=== PATIENT | male | born 1940 | race Caucasian/White ===

== ENCOUNTER 2020-08-09 15:42 | Outpatient (REF) | payer MEDICARE, SELFPAY ==
--- NOTE | 2020-08-09 | PFT_ITS ---
INDICATION: Pulmonary nodules. SPIROMETRY: The FEV1 to FVC 76% with an FEV1 of 3.22 L, which is 121% predicted, and an FVC of 4.25 L, which is 113% predicted. No significant response to bronchodilators noted. Maximum voluntary ventilation 102% predicted. LUNG VOLUMES: Total lung capacity 96% predicted with an expiratory volume of 55% predicted. DIFFUSION CAPACITY: DLCO 54% predicted. COMPARISONS: None available. INTERPRETATION: No obstructive nor restrictive ventilatory defects identified. No significant response to bronchodilators noted. Normal maximum voluntary ventilation. Lung volumes are within normal limits. However, the patient does have an isolated moderate diffusion impairment. Need to consider occult interstitial lung conditions and/or pulmonary vascular conditions. Should also correct for hemoglobin. Clinical correlation warranted. MD PATRICIA Sharp/[facility] / [id number]
== END 2020-08-09 15:43 | disposition home or self-care (01) ==
LOC: HO.RESP 15:42
PROVIDERS: Visit Provider Hospitalist
DX: R91.8 Other nonspecific abnormal finding of lung field (principal)
CPT/HCPCS: 94060; 94727; 94729

== ENCOUNTER → 2020-08-10 10:40 | Outpatient (BNVA) | payer MEDICARE, SELFPAY | PROVIDERS: PCP Internal Medicine; Visit Provider Hospitalist | DX: C91.10 Chronic lymphocytic leukemia of B-cell type not having achieved remission (principal); R16.0 Hepatomegaly, not elsewhere classified; R94.2 Abnormal results of pulmonary function studies; R91.8 Other nonspecific abnormal finding of lung field | CPT/HCPCS: 99212 ==

== ENCOUNTER 2020-11-26 10:20 | Outpatient (REF) | payer MEDICARE, SELFPAY ==
--- NOTE | ~2020-11-26 | CT_ITS ---
EXAMINATION: CT CHEST WITHOUT CONTRAST CLINICAL INFORMATION: Pulmonary nodules COMPARISON: None TECHNIQUE: Multidetector volumetric CT imaging of the chest was done. Axial MIP volume rendering provided. Sagittal and coronal reformatted images were obtained. This CT examination was performed using dose optimization techniques as appropriate, variously including the following: *Automated exposure control *Adjustment of mA and/or kV according to patient size (this includes techniques or standardized protocols for targeted exams where dose is matched to indication/reason for exam; i.e. extremities or head) *Use of iterative reconstruction technique DLP: 145 mGy-cm FINDINGS: VISUAL MERCHANDISE MANAGER: Degenerative changes of the spine. Symmetrically expanded lungs. LUNGS: Motion artifact limits evaluation of the upper lobes. There are areas of triangular area fissural thickening along the right major fissure, for example image 225/4 9. There is a 2 to 3 mm right lower lobe nodule in image 253. Ovoid 5 x 3 mm nodule in the right lower lobe in image 234 may be related to the fissure as well. MEDIASTINUM: Normal size mediastinal lymph nodes. No hilar or mediastinal lymphadenopathy. Dense left anterior descending and diagonal branch coronary artery calcification. No pericardial effusion. Normal heart size. PLEURA: There is no pleural effusion. No pleural mass or thickening. AXILLA: No lymphadenopathy. UPPER ABDOMEN: Splenomegaly, measuring 15 cm anterior to posterior. OSSEOUS STRUCTURES: Multilevel degenerative changes of the spine. No acute osseous abnormality. CT/CT chest wo con IMPRESSION: There are several small nodular abnormalities in the right lung. Most of these are associated with the right major fissure and likely represent intrafissural lymph nodes but there is at least one 2-3 mm nodule which appears to be intraparenchymal. According to the UPDATED 2017 Fleischner Society recommendations, the advised follow-up imaging for solid nodules < 6 mm is: LOW RISK PATIENT: No routine follow-up. HIGH RISK PATIENT: Optional CT at 12 months. Nonspecific splenomegaly.
== END 2020-11-26 10:21 | disposition home or self-care (01) ==
LOC: HO.CT 10:20
PROVIDERS: Visit Provider Hospitalist
DX: R91.8 Other nonspecific abnormal finding of lung field (principal); R16.0 Hepatomegaly, not elsewhere classified; C91.10 Chronic lymphocytic leukemia of B-cell type not having achieved remission
CPT/HCPCS: 71250

== ENCOUNTER → 2020-12-06 09:55 | Outpatient (BNVA) | payer MEDICARE, SELFPAY | PROVIDERS: PCP Internal Medicine; Visit Provider Hospitalist | DX: C91.10 Chronic lymphocytic leukemia of B-cell type not having achieved remission (principal); R91.8 Other nonspecific abnormal finding of lung field; R16.0 Hepatomegaly, not elsewhere classified; R94.2 Abnormal results of pulmonary function studies | CPT/HCPCS: 99212 ==

== ENCOUNTER → 2021-12-07 10:32 | Outpatient (BNVA) | payer MEDICARE, SELFPAY | PROVIDERS: PCP Internal Medicine; Visit Provider Hospitalist | DX: C91.10 Chronic lymphocytic leukemia of B-cell type not having achieved remission (principal); R91.8 Other nonspecific abnormal finding of lung field; R94.2 Abnormal results of pulmonary function studies; R16.0 Hepatomegaly, not elsewhere classified | CPT/HCPCS: 99212 ==

== ENCOUNTER 2023-08-28 09:22 | Outpatient (AMB) | payer MEDICARE, SELFPAY ==
--- NOTE | 2023-08-28 09:30 | HO.NEPHOV_ITS ---
Vital Signs 08/28/23 09:31 Height 5 ft 8 in Weight 153 lb 8 oz BMI 23.3 BP 104/50 L Blood Pressure Location Lt brachial Position Sitting Pulse 55 Pulse Source Pulse Oximeter Pulse Oximetry (%) 96 Oxygen Delivery Method Room Air Intake Visit Reasons: Please confirm/ Conf Director Of Preclinical Research Required: No Accompanied by: Self / Same As Patient Allergies No Known Allergies Allergy (Verified 08/28/23 09:33) HPI Comments Details: I had the privilege of seeing Ilia in follow-up of his chronic kidney disease and proteinuria. He has longstanding hypertension. He has not a diabetic. He does not take nonsteroidal anti-inflammatories regularly. He has history of prostate issues in the past. He is known to have coronary artery disease and had undergone angioplasty. He denies CVA, KAMINI, PVD or CHF. There is no history of any paraproteinemia. 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 He received Rituximab in 2015 and in Mar 2023. He had steroid treatment in late Mar / Apr for thrombocytopenia. He did not have any new systemic complaints at the time of this office visit. [facility] Medical History (Updated 08/28/23 @ 09:34 by Ravindra Arrieta MD) Hypothyroidism Hyperlipidemia Hypertension Chronic kidney disease, stage 3a Allergic rhinitis CLL (chronic lymphocytic leukemia) Liver mass Abnormal PFTs (pulmonary function tests) Pulmonary nodules Surgical History (Updated 08/28/23 @ 09:35 by Beverly Flores MA) History of heart artery stent History of cataract surgery Family History (Updated 08/28/23 @ 09:36 by Beverly Flores MA) Daughter Cancer Social History (Updated 08/28/23 @ 09:36 by Beverly Flores MA) Alcohol intake: current Comment: Occasionally Patient Tobacco Use Status: Never used Tobacco Use of substances other than those prescribed or required for medical reasons: No Physical Exam Vital Signs: Last Vital Signs Pulse 55 08/28/23 09:31 BP 104/50 L 08/28/23 09:31 Pulse Ox 96 08/28/23 09:31 Oxygen Delivery Method Room Air 08/28/23 09:31 BMI result Body Mass Index 23.3 Const General: comfortable and no acute distress Orientation/consciousness: patient oriented x3 HEENT Head: Yes normocephalic Mouth: Normal oral and palatal mucosa present Eyes EOM: EOMs intact bilaterally Neck Neck: Yes supple Resp Auscultation: clear to auscultation bilaterally Cardio Jugular venous distension: no JVD Rate: regular rate GI Palpation (GI): Soft to palpation Auscultation: normal bowel sounds General: Yes no CVA tenderness Back/Spine/Pelvis Back: no CVA tenderness Skin General skin exam: no rashes or lesions noted Neuro General: patient oriented x3 and moves all extremities Extrem General: Yes no pedal edema Results Reviewed Nephrology Results: No Data to Display Assessment & Plan Assessment & Plan (1) CKD stage 3b, GFR 30-44 ml/min: Code(s): N18.32 - Chronic kidney disease, stage 3b Category: Medical (2) Hypertension: Code(s): I10 - Essential (primary) hypertension Category: Medical Qualifiers: Hypertension type: primary hypertension Qualified Code(s): I10 - Essential (primary) hypertension Plan Ilia has stage III CKD likely from vascular disease. His serum creatinine had been stable. He is on DEMETRIO-inhibitor. 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 He had received Rituximab. If his creatinine rises he will need a renal biopsy. He should maintain good hydration and avoid nonsteroidal anti-inflammatories. I did not make any medication changes today. Follow-up blood work ordered. Answered all questions. Orders: Orders Creatinine Today I10 - Essential (primary) hypertension, N18.32 - Chronic kidney disease, stage 3b Blood Urea Nitrogen Today I10 - Essential (primary) hypertension, N18.32 - Chronic kidney disease, stage 3b Electrolytes Today I10 - Essential (primary) hypertension, N18.32 - Chronic kidney disease, stage 3b Protein Creatinine Ratio, Ur Today I10 - Essential (primary) hypertension, N18.32 - Chronic kidney disease, stage 3b Calcium Today I10 - Essential (primary) hypertension, N18.32 - Chronic kidney disease, stage 3b Uric Acid Today I10 - Essential (primary) hypertension, N18.32 - Chronic kidney disease, stage 3b Creatinine 6 Months I10 - Essential (primary) hypertension, N18.32 - Chronic kidney disease, stage 3b Blood Urea Nitrogen 6 Months I10 - Essential (primary) hypertension, N18.32 - Chronic kidney disease, stage 3b Electrolytes 6 Months I10 - Essential (primary) hypertension, N18.32 - Chronic kidney disease, stage 3b Coding Level of Care Code Est Pt Level 4 (41161) Diagnoses CKD stage 3b, GFR 30-44 ml/min N18.32 Primary hypertension I10 Hypertension type: primary hypertension
[2023-08-28 09:31] VITALS: BP 104/50; PULSE 55; O2SAT 96; BMI 23.3
== END 2023-08-28 10:18 | disposition home or self-care (01) ==
PROVIDERS: PCP Internal Medicine; Visit Provider Internal Medicine Nephrology
DX: N18.32 Chronic kidney disease, stage 3b (principal); I10 Essential (primary) hypertension
CPT/HCPCS: 99214

== ENCOUNTER → 2023-08-28 09:22 | Outpatient (BNVA) | payer MEDICARE, SELFPAY | PROVIDERS: PCP Internal Medicine; Visit Provider Internal Medicine Nephrology ==

== ENCOUNTER 2023-08-28 10:03 | Outpatient (REF) | payer MEDICARE, SELFPAY ==
[2023-08-28 18:47] LABS: Anion Gap 11 (12-20); Blood Urea Nitrogen 27 mg/dL (9-16); Calcium 9.3 mg/dL (8.4-10.2); Carbon Dioxide 25 mmol/L (22-29); Chloride 109 mmol/L (96-108); Estimated Glomerular Filt Rate 46; Potassium 4.2 mmol/L (3.3-5.1); Sodium 141 mmol/L (135-145); Uric Acid 6.2 mg/dL (3.4-7.0)
[2023-08-28 18:56] LABS: Creatinine Urine 127.07 mg/dL; Protein/Creatinine Ratio, Ur 0.15 (<0.2); Total Protein Urine Random 19 mg/dL (<12)
== END 2023-08-28 10:04 | disposition home or self-care (01) ==
LOC: HO.HKASLDS 10:03
PROVIDERS: Visit Provider Internal Medicine Nephrology
DX: I10 Essential (primary) hypertension (principal); N18.32 Chronic kidney disease, stage 3b
CPT/HCPCS: 36415; 80051; 82310; 82565; 82570; 84156; 84520; 84550; 99212

== ENCOUNTER 2024-02-28 09:17 | Outpatient (AMB) | payer MEDICARE, SELFPAY ==
[2024-02-28 09:37] VITALS: BP 124/52; PULSE 55; O2SAT 97; BMI 23.9
--- NOTE | 2024-02-28 09:37 | HO.NEPHOV ---
Vital Signs 02/28/24 09:37 Height 5 ft 8 in Weight 157 lb 6 oz BMI 23.9 BP 124/52 L Blood Pressure Location Lt brachial Position Sitting Pulse 55 Pulse Source Pulse Oximeter Pulse Oximetry (%) 97 Oxygen Delivery Method Room Air Intake Visit Reasons: follow up- Conf Supervisor Title Required: No Accompanied by: Self / Same As Patient Allergies No Known Allergies Allergy (Verified 02/28/24 09:37) HPI Comments Details: Ilia was seen in follow-up of his chronic kidney disease and proteinuria. He has longstanding hypertension. He has not a diabetic. He does not take nonsteroidal anti-inflammatories regularly. He has history of prostate issues in the past. He is known to have coronary artery disease and had undergone angioplasty. He denies CVA, KAMINI, PVD or CHF. There is no history of any paraproteinemia. 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 He received Rituximab in 2015 and in Mar 2023. He had steroid treatment in late Mar / Apr for thrombocytopenia. He did not have any new systemic complaints at the time of this office visit. [facility] Medical History (Updated 08/28/23 @ 09:34 by Ravindra Arrieta MD) Hypothyroidism Hyperlipidemia Hypertension Chronic kidney disease, stage 3a Allergic rhinitis CLL (chronic lymphocytic leukemia) Liver mass Abnormal PFTs (pulmonary function tests) Pulmonary nodules Surgical History History of heart artery stent History of cataract surgery Family History Daughter Cancer Social History Alcohol intake: current Comment: Occasionally Patient Tobacco Use Status: Never used Tobacco Review of Systems Const All systems reviewed & are unremarkable except as noted in HPI and below Physical Exam Vital Signs: Last Vital Signs Pulse 55 02/28/24 09:37 BP 124/52 L 02/28/24 09:37 Pulse Ox 97 02/28/24 09:37 Oxygen Delivery Method Room Air 02/28/24 09:37 BMI result Body Mass Index 23.9 Const General: comfortable and no acute distress Orientation/consciousness: patient oriented x3 HEENT Head: Yes normocephalic Mouth: Normal oral and palatal mucosa present Eyes EOM: EOMs intact bilaterally Neck Neck: Yes supple Resp Auscultation: clear to auscultation bilaterally Cardio Jugular venous distension: no JVD Rate: regular rate GI Palpation (GI): Soft to palpation Auscultation: normal bowel sounds General: Yes no CVA tenderness Back/Spine/Pelvis Back: no CVA tenderness Skin General skin exam: no rashes or lesions noted Neuro General: patient oriented x3 and moves all extremities Extrem General: Yes no pedal edema Assessment & Plan Assessment & Plan (1) CKD stage 3b, GFR 30-44 ml/min: Code(s): N18.32 - Chronic kidney disease, stage 3b Category: Medical (2) Hypertension: Code(s): I10 - Essential (primary) hypertension Category: Medical Qualifiers: Hypertension type: primary hypertension Qualified Code(s): I10 - Essential (primary) hypertension Plan Ilia has stage III CKD likely from vascular disease. His serum creatinine had been stable. He is on DEMETRIO-inhibitor. 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 He had received Rituximab. If his creatinine rises he will need a renal biopsy. He should maintain good hydration and avoid nonsteroidal anti-inflammatories. I did not make any medication changes today. Follow-up blood work ordered. Answered all questions. Coding Level of Care Code Est Pt Level 4 (75121) Diagnoses CKD stage 3b, GFR 30-44 ml/min N18.32 Primary hypertension I10 Hypertension type: primary hypertension
== END 2024-02-28 09:54 | disposition home or self-care (01) ==
PROVIDERS: PCP Internal Medicine; Visit Provider Internal Medicine Nephrology
DX: N18.32 Chronic kidney disease, stage 3b (principal); I10 Essential (primary) hypertension
CPT/HCPCS: 99214

== ENCOUNTER → 2024-02-28 09:17 | Outpatient (BNVA) | payer MEDICARE, SELFPAY | PROVIDERS: PCP Internal Medicine; Visit Provider Internal Medicine Nephrology | DX: I12.9 Hypertensive chronic kidney disease with stage 1 through stage 4 chronic kidney disease, or unspecified chronic kidney disease (principal); N18.32 Chronic kidney disease, stage 3b | CPT/HCPCS: 99212 ==

== ENCOUNTER 2024-11-20 14:30 | Outpatient (AMB) | payer MEDICARE, SELFPAY ==
--- OUTSIDE RECORDS SUMMARY | 2024-01-02 10:00 | XMS_ITS | Encounter Summary ---
Author Organization [facility] Address [address] [place] [address] Care Team Providers Care Water Quality Analyst Name Role Phone Alfred Celaya MD Primary Care Provider + [phone] Encounter Details Date Type Department Care Team (Late st Contact Info) Description 01/02/2024 10:00 AM EDT Hospital Encounter TH HISTORIC ENCOUNTERS [facility] CONVERSION ONLY Xavier-Cristina Bautista MD [address] [place] [id number] Social History Tobacco Use Types Packs/Day Years Used Date Smoking Tobacco: Never Smokeless Tobacco: Never Alcohol Use Standard Drinks/Week Comments Not Currently 0 (1 standard drink = 0.6 oz pur e alcohol) Sex and Gender Information Value Date Recorded Sex Assigned at Not on file Legal Sex Male 11:57 PM EST Gender Identity Not on file Sexual Orientation Not on file documented as of this encounter Plan of Treatment Upcoming Encounters Date Type Department Care Team (Late st Contact Info) Description 12/17/2024 1:00 PM EDT Office Visit [facility] [address] [place] [address] Rolando Roque MD [address] [place] [address] [address] [place] [phone] 01/07/2025 10:00 AM EDT Office Visit [facility] Hematology Oncology [address] [place] [address] Xavier-Cristina Bautista MD [address] [place] [phone] documented as of this encounter Visit Diagnoses Not on filedocumented in this encounter Care Teams Water Quality Analyst Relationship Specialty Start Date End Date Alfred Celaya MD [address] [place] [address] PCP - General Internal Medicine 08/06/14 documented as of this encounter
--- NOTE | 2024-11-20 14:39 | HO.NEPHOV_ITS ---
Vital Signs 11/20/24 14:50 Height 5 ft 8 in Weight 149 lb 6 oz BMI 22.7 BP 104/50 L Blood Pressure Location Lt brachial Position Sitting Pulse 65 Pulse Source Pulse Oximeter Pulse Oximetry (%) 95 Oxygen Delivery Method Room Air Intake Visit Reasons: 8 Months-Conf Rail Track Layer Required: No Accompanied by: Self / Same As Patient Allergies No Known Allergies Allergy (Verified 11/20/24 14:50) HPI Comments Details: Ilia was seen in follow-up of his chronic kidney disease and proteinuria. He has longstanding hypertension. He has not a diabetic. He does not take nonsteroidal anti-inflammatories regularly. He has history of prostate issues in the past. He is known to have coronary artery disease and had undergone angioplasty. He denies CVA, KAMINI, PVD or CHF. There is no history of any paraproteinemia. 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 He received Ri tuximab in 2015 and in Feb/ Mar 2023. He has H/O steroid treatment in late Mar / Apr for thrombocytopenia. He did not have any new systemic complaints at the time of this office visit [facility] Medical History (Updated 08/28/23 @ 09:34 by Ravindra Arrieta MD) Hypothyroidism Hyperlipidemia Hypertension Chronic kidney disease, stage 3a Allergic rhinitis CLL (chronic lymphocytic leukemia) Liver mass Abnormal PFTs (pulmonary function tests) Pulmonary nodules Surgical History History of heart artery stent History of cataract surgery Family History Daughter Cancer Social History Alcohol intake: current Comment: Occasionally Patient Tobacco Use Status: Never used Tobacco Review of Systems Const All systems reviewed & are unremarkable except as noted in HPI and below Physical Exam Const General: comfortable and no acute distress Orientation/consciousness: patient oriented x3 HEENT Head: Yes normocephalic Mouth: Normal oral and palatal mucosa present Eyes EOM: EOMs intact bilaterally Neck Neck: Yes supple Resp Auscultation: clear to auscultation bilaterally Cardio Jugular venous distension: no JVD Rate: regular rate GI Palpation (GI): Soft to palpation Auscultation: normal bowel sounds General: Yes no CVA tenderness Back/Spine/Pelvis Back: no CVA tenderness Skin General skin exam: no rashes or lesions noted Neuro General: patient oriented x3 and moves all extremities Extrem General: Yes no pedal edema Assessment & Plan Assessment & Plan (1) Hypertension: Code(s): I10 - Essential (primary) hypertension Category: Medical Qualifiers: Hypertension type: primary hypertension Qualified Code(s): I10 - Essential (primary) hypertension (2) CKD stage 3b, GFR 30-44 ml/min: Code(s): N18.32 - Chronic kidney disease, stage 3b Category: Medical Plan Ilia has stage III CKD likely from vascular disease. His serum creatinine had been stable. He is on DEMETRIO-inhibitor. 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 He had received Rituximab. If his creatinine rises he will need a renal biopsy. He should maintain good hydration and avoid nonsteroidal anti-inflammatories. I did not make any medication changes today. Follow-up blood work ordered. Answered all questions. Orders: Orders Creatinine 7 Months I10 - Essential (primary) hypertension, N18.32 - Chronic kidney disease, stage 3b Blood Urea Nitrogen 7 Months I10 - Essential (primary) hypertension, N18.32 - Chronic kidney disease, stage 3b Electrolytes 7 Months I10 - Essential (primary) hypertension, N18.32 - Chronic kidney disease, stage 3b Calcium 7 Months I10 - Essential (primary) hypertension, N18.32 - Chronic kidney disease, stage 3b Coding Level of Care Code Est Pt Level 4 (51895) Diagnoses Primary hypertension I10 Hypertension type: primary hypertension CKD stage 3b, GFR 30-44 ml/min N18.32
[2024-11-20 14:50] VITALS: BP 104/50; PULSE 65; O2SAT 95; BMI 22.7
--- OUTSIDE RECORDS SUMMARY | 2024-11-20 15:48 | XMS_ITS | Clinical Summary ---
Author [facility] [place] [address] Phone Care Team Providers Care Negative Turner Name Role Phone Alfred Celaya MD Primary Care Provider [phone] Allergies No known active allergies Medications aspirin (ASPIR-81 ORAL) Take 1 Tablet by mouth daily. Active coenzyme Q-10 100 mg capsule Take 1 Capsule by mouth daily. Active finasteride (PROSCAR) 5 mg tablet Take 1 Tablet by mouth daily. Active levothyroxine (SYNTHROID, LEVOTHROID) 75 mcg tablet Take 1 Tablet by mouth daily. Active multivit-min/iron /folic acid/K (ADULTS MULTIVITAMIN ORAL) Multiple Vitamins-Mine rals (MULTIVITAMIN ADULT) Tab Take 1 Tablet by mouth daily. Active omega-3 acid ethyl esters (LOVAZA) 1 gram capsule Take 1 Capsule by mouth daily. Active oxyBUTYnin (DITROPAN) 5 mg tablet Take 5 mg by mouth 2 times daily. Active simvastatin (ZOCOR) 40 mg tablet Take 40 mg by mouth at bedtime. Active terazosin (HYTRIN) 5 mg capsule Take 5 mg by mouth at bedtime. Active lisinopriL (PRINIVIL,ZESTRIL ) 2.5 mg tablet Take 1 tablet (2.5 mg total) by mouth 1 (one) time each day. Active atenoloL (TENORMIN) 25 mg tablet TAKE ONE-HALF (1/2) (12.5 MG) TABLET DAILY 45 tablet 3 5 Active Active Problems Problem Noted Date Diagnosed Date Allergic rhinitis 09/03/2017 Coronary artery disease 09/03/2017 Overview (05/27/2024): Stented 06/06/1996, 09/15/14 Last Assessment & Plan: Patient with a history coronary disease status post previous angioplasty. Patient now exhibits some evidence for possible ischemia. The chest pain symptoms that he complained about before I have resolved and he is able to ambulate walking 3 miles every other day with his son without pain or discomfort and working in the yard without discomfort. We discussed the possibility of adding long-term nitrate therapy to his medical management in an effort to try to give him better ischemic protection. He does not want to change his meds. At this point he is completely asymptomatic his physical activity is a moderate level without any symptoms of angina. I told him to report any chest pain or discomfort that might occur in which case then we will change his medical management. Assessment & Plan (05/27/2024 10:35 AM EDT): Patient with a previous history of coronary disease with angioplasty of both the left anterior descending and circumflex systems.With class I anginal symptoms still present. Discussed that the class I symptoms with him I discussed with him the indication for us to reevaluate which would be exertional discomfort that is progressive. He has been asked to call us if he develops any that when he starts his walking program again this summer. Otherwise we will see him back in 6 months patient states that his lipids been followed by primary care but I cannot find a recent lipid profile on him I cited the patient that even though there may be some mild ischemia on stress testing as long as it is being controlled with medical management and is not having day-to-day symptoms we would proceed to angioplasty if there is any deterioration in that level of exertional discomfort. Orders: ECG 12 lead Hypertension 09/03/2017 Overview (02/25/2024): Last Assessment & Plan: Blood pressures under good medical management at this time Osteoporosis 09/03/2017 CLL (chronic lymphocytic adarsh kemia) ([facility] V24, [facility] V28) 08/03/2017 Overview (02/25/2024): Last Assessment & Plan: Patient with chronic CLL. White cell count is elevated mild anemia. No change in therapy at this time followed by hematology. Hyperlipidemia 07/25/2017 Overview (02/25/2024): Last Assessment & Plan: Lipids recently checked by his primary care team and they are all within normal limits Pulmonary nodule 11/28/2016 Encounters Date Type Department Care Team Description 11/14/2024 Telephone [facility] [address] [address] Meggan Castrejon RN from Last 3 Months Surgical History Surgery Date Site/Laterality Comments CARDIAC CATHETERIZATION PROCEDURE: HISTORICAL CARDIAC CATH; COMMENT: stented , 08/31 CATARACT EXTRACTION Bilateral PROCEDURE: HISTORICAL CATARACT REMOVAL Medical History Medical History Date Comments Hyperlipidemia 07/25/2017 DX:Hyperlipidemi a Allergic rhinitis 09/03/2017 DX:Allergic rh initis CLL (chronic lymphocytic adarsh kemia) ([facility] V24, [facility] V28) 08/03/2017 DX:CLL (chronic lymphocytic leukemia) ([facility]) Coronary artery disease 09/03/2017 DX:Coron isidra artery disease; COMMENT: Stented 06/06/1996, 09/15/14 Hypertension 09/03/2017 DX:Hypertension Osteoporosis 09/03/2017 DX:Osteoporosis Pulmonary nodule 11/28/2016 DX:Pulmonary no dule Family History Medical History Relation Name Comments Other: heart disease Father stroke Heart failure Mother Relation Name Status Comments Father Mother Social History Tobacco Use Types Packs/Day Years Used Date Smoking Tobacco: Never Smokeless Tobacco: Never Tobacco Cessation:Counseling Given: Not Answered Alcohol Use Standard Drinks/Week Comments Not Currently 0 (1 standard drink = 0.6 oz pur e alcohol) Sex and Gender Information Value Date Recorded Sex Assigned at Not on file Legal Sex Male 11:57 PM EST Gender Identity Not on file Sexual Orientation Not on file Obstetrics History Last Filed Vital Signs Vital Sign Reading Time Taken Comments Blood Pressure 112/42 07/17/2024 10:43 AM EDT Pulse 55 07/17/2024 10:43 AM EDT Temperature 36.6 C (97.8 F) 07/17/2024 10:43 AM EDT Respiratory Rate - - Oxygen Saturation 100% 07/17/2024 10:43 AM EDT Inhaled Oxygen Concentration - - Weight 70.3 kg (155 lb) 07/17/2024 10:43 AM EDT Height 172.7 cm (5' 8 ) 07/17/2024 10:43 AM EDT Body Mass Index 23.57 07/17/2024 10:43 AM EDT Plan of Treatment Upcoming Encounters Date Type Department Care Team (Late st Contact Info) Description 12/17/2024 1:00 PM EDT Office Visit [facility] [address] [place] [address] Dr Colon [address] [place] [address] Rolando Roque MD [address] [place] [address] Dr Chavez [address] [place] [address] 01/07/2025 10:00 AM EDT Office Visit [facility] Hematology Oncology [address] [place] [address] Xavier-Cristina Bautista MD [address] [place] [address] Health Maintenance Due Date Last Done Comments DTaP,Tdap,and Td Vaccines (1 - Tdap) 1959 Zoster Vaccines (1 of 2) 1959 Pneumococcal Vaccine: 50+ Years (2 of 2 - PPSV23) 05/14/2008 03/19/2008 RSV Immunization Adult Patients (1 - 1-dose 75+ series) 2016 Cholesterol Screening (Lipid Panel) 02/24/2022 Falls Risk Assessment 02/24/2022 Medicare Annual Wellness Visit 02/24/2022 Social Influencers of Health Screening 02/24/2022 Depression Screening 03/19/2024 COVID-19 Vaccine ( season) 2024 06/27/2021, 01/19/2021, 06/05/2020, Additional history exists Influenza Vaccine (#1) 2024 3, 01/05/2022, 12/29/2020, Additional history exists Hypertension/CHF/CAD Annual BMP Blood Test 01/31/2025 02/01/2024 HIB Vaccines Aged Out No longer eligi ble based on patient's age to complete this topic HPV Vaccines Aged Out No longer eligi ble based on patient's age to complete this topic Hepatitis A Vaccines Aged Out No long er eligible based on patient's age to complete this topic Hepatitis B Vaccines Aged Out No long er eligible based on patient's age to complete this topic IPV Vaccines Aged Out No longer eligi ble based on patient's age to complete this topic MMR Vaccines Aged Out No longer eligi ble based on patient's age to complete this topic Meningococcal ACWY Vaccine Aged Out N o longer eligible based on patient's age to complete this topic Meningococcal B Vaccine Aged Out No l onger eligible based on patient's age to complete this topic RSV Immunization Patients Under 20 months Aged Out No longer eligible based on patient's age to complete this topic Varicella Vaccines Aged Out No longer eligible based on patient's age to complete this topic Procedures Procedure Name Priority Date/Time Associated Diagnosis Comments COMPREHENSIVE METABOLIC PANEL Routine 02/01/2024 10:26 AM EST Chronic lymphoid leukemia, without mention of having achieved remission(204.10) (CMS/HCC V24, [facility] V28) Anemia, unspecified from Last 3 Months or Most Recently Relevant to Health Maintenance Results * (ABNORMAL) Comprehensive metabolic panel (02/01/2024 10:26 AM EST) Sodium 140 133 - 145 mmol/L LAB CHEMISTRY METHOD 02/01/2024 12:54 PM [facility] Potassium 4.2 3.5 - 5.5 mmol/L LAB CHEMISTRY METHOD 02/01/2024 12:54 PM [facility] Chloride 109 96 - 110 mmol/L LAB CHEMISTRY METHOD 02/01/2024 12:54 PM [facility] CO2 26 21 - 32 mmol/L LAB CHEMISTRY METHOD 02/01/2024 12:54 PM [facility] Anion Gap 5 3 - 11 LAB CHEMISTRY METHOD 02/01/2024 12:54 PM [facility] Glucose 157(H) 70 - 100 mg/dL LAB CHEMISTRY METHOD 02/01/2024 12:54 PM [facility] BUN 27(H) 5 - 25 mg/dL LAB CHEMISTRY METHOD 02/01/2024 12:54 PM [facility] Creatinine 1.72(H) 0.70 - 1.30 mg/dL LAB CHEMISTRY METHOD 02/01/2024 12:54 PM [facility] eGFR 39(L) >=60 mL/min/1. 73m2 LAB CHEMISTRY METHOD 02/01/2024 12:54 PM [facility] Comment:Calculation based on the Chronic Kidney Disease Epidemiology Collaboration (CKD-EPI) equation refit without adjustment for race. BUN/Creatinine Ratio 15.7 LAB CHEMISTRY METHOD 02/01/2024 12:54 PM [facility] Calcium 8.8 8.5 - 10.5 mg/dL LAB CHEMISTRY METHOD 02/01/2024 12:54 PM [facility] AST (SGOT) 17 10 - 42 unit/L LAB CHEMISTRY METHOD 02/01/2024 12:54 PM [facility] ALT (SGPT) 22 10 - 60 unit/L LAB CHEMISTRY METHOD 02/01/2024 12:54 PM [facility] Alkaline Phosphatase 74 42 - 121 unit/L LAB CHEMISTRY METHOD 02/01/2024 12:54 PM [facility] Total Protein 5.9(L) 6.0 - 8.0 g/dL LAB CHEMISTRY METHOD 02/01/2024 12:54 PM [facility] Albumin 4.0 3.2 - 5.0 g/dL LAB CHEMISTRY METHOD 02/01/2024 12:54 PM [facility] Total Bilirubin 0.6 0.0 - 1.4 mg/dL LAB CHEMISTRY METHOD 02/01/2024 12:54 PM [facility] Blood Venous blood specimen / Unknown Venipuncture / Unknown 02/01/2024 10:26 AM EST 02/01/2024 12:21 PM EST us Cristnia Da Silva MD LAB BLOOD ORDERABLE S Final Result [facility] ([facility]) [facility] [address] [place] [address], from Last 3 Months or Most Recently Relevant to Health Maintenance Insurance MEDICARE [facility] Care Teams Negative Turner Relationship Specialty Start Date End Date Alfred Celaya MD [address] [place] [id number] PCP - General Internal Medicine 08/06/14
--- OUTSIDE RECORDS SUMMARY | 2024-11-20 15:48 | XMS_ITS | Encounter Summary ---
Author Organization [facility] Address [address] [place] [address] Care Team Providers Care Billing Coordinator Name Role Phone Alfred Celaya MD Primary Care Provider + [phone] Encounter Details Date Type Department Care Team (Late st Contact Info) Description 11/14/2024 Telephone [facility] [address] [phone] Meggan Castrejon RN Social History Tobacco Use Types Packs/Day Years [...] on file documented as of this encounter Progress Notes * Cristina Da Silva MD - 11/14/2024 11:44 AM EDT [place] CLL No orders * Lisa Andres MA - 11/14/2024 11:40 AM EDT Copy of lab results given to and scanned into patients chart. * Meggan Castrejon RN - 11/14/2024 11:11 AM EDT Diandra from [facility] Calling to report critical test result on patient. Patient's WBC 89.3. Also reported but not critical is platelet level of 54k. documented in this encounter Plan of Treatment Upcoming Encounters Date Type Department Care Team (Late st Contact Info) Description 12/17/2024 1:00 PM EDT Office Visit [facility] [address] [place] [address] [place] [phone] Rolando Roque MD [address] [place] [address] Dr Chavez [address] [place] [phone] 01/07/2025 10:00 AM EDT Office Visit [facility] Hematology Oncology [address] [place] [phone] Cristina Da Silva MD [address] [place] [phone] documented as of this encounter Visit Diagnoses Not on filedocumented in this encounter Care Teams Billing Coordinator Relationship Specialty Start Date End Date Alfred Celaya MD [address] [place] [id number] PCP - General Internal Medicine 08/06/14 documented as of this encounter
--- OUTSIDE RECORDS SUMMARY | 2024-11-20 15:48 | XMS_ITS | Clinical Summary ---
Author Organization [facility] Address [address] [address] Phone Care Team Providers Care Tax Compliance Officer Name Role Phone Alfred Celaya MD Primary Care Provider Allergies No known active allergies Medications oxybutynin (DITROPAN) 5 MG tablet Take 1 tablet by mouth 1 (one) time each day 07/26/2020 Active atenolol (TENORMIN) 25 MG tablet Take 12.5 mg by mouth 1 (one) time each day Active simvastatin (ZOCOR) 40 MG tablet Take 40 mg by mouth every night Active terazosin (HYTRIN) 5 MG capsule Take 5 mg by mouth every night Active aspirin (ST AGATA) 81 MG EC tablet Take 81 mg by mouth 1 (one) time each day Active levothyroxine (SYNTHROID, LEVOTHROID) 75 MCG tablet Take 75 mcg by mouth 1 (one) time each day Active Multiple Vitamin (multivitamin) tablet Take 1 tablet by mouth 1 (one) time each day Active [place]-3 Fatty Acids (Fish Oil) 1000 MG capsule delayed-release Take 1 capsule by mouth 1 (one) time each day Active Coenzyme Q10 (Co Q 10) 100 MG capsule Take 1 capsule by mouth 1 (one) time each day Active isosorbide dinitrate (ISORDIL) 30 MG tablet Take 30 mg by mouth 1 (one) time each day Active lisinopril 2.5 MG tablet Take 1 tablet (2.5 mg total) by mouth 1 (one) time each day 90 tablet 3 05/09/2022 Active Active Problems Problem Noted Date Diagnosed Date Stage 3a chronic kidney disease 08/03/2022 Chronic kidney disease 08/23/2020 Hypertension 08/23/2020 Acute cystitis without hematuria 12/17/2019 Anemia in other chronic diseases classified else where 12/17/2019 Coronary atherosclerosis 09/03/2017 Overview (08/30/2021): Stented 06/06/1996, 09/15/14 Resolved Problems Problem Noted Date Diagnosed Date Resolved Date Disorder of eye region 09/27/202008/30 Splenomegaly 09/29/2019 08/30/2021 Thrombocytopenia 09/29/2019 08/30/2021 Allergic rhinitis 09/03/2017 08/30/2021 Osteoporosis 09/03/2017 08/30/2021 Hyperlipidemia 07/25/2017 08/30/2021 Nodule of lung 11/28/2016 08/30/2021 Chronic lymphoid leukemia, disease 10/02/2016 08/30/2021 Family History Medical History Relation Comments Cancer Child Relation Status Comments Child Father Mother Social History Tobacco Use Types Packs/Day Years Used Date Smoking Tobacco: Never Smokeless Tobacco: Never Tobacco Cessation:Counseling Given: Not Answered Alcohol Use Standard Drinks/Week Comments Yes 0 (1 standard drink = 0.6 oz pur e alcohol) Sex and Gender Information Value Date Recorded Sex Assigned at Not on file Legal Sex Male 3:31 PM EDT Gender Identity Not on file Sexual Orientation Not on file Last Filed Vital Signs Vital Sign Reading Time Taken Comments Blood Pressure 116/50 08/03/2022 3:53 PM EDT Pulse 66 08/03/2022 3:53 PM EDT Temperature - - Respiratory Rate - - Oxygen Saturation 99% 09/05/2021 1:00 PM EDT Inhaled Oxygen Concentration - - Weight 68.3 kg (150 lb 9.6 oz) 08/03/2022 3:53 P M EDT Height - - Body Mass Index - - Plan of Treatment Health Maintenance Due Date Last Done Comments Pneumococcal Vaccine: 50+ Years (2 of 2 - PPSV23, PCV20, or PCV21) 05/14/2008 03/19/2008 Influenza Vaccine (#1) 2024 9, 01/08/2018, 01/04/2017 Hepatitis B Vaccine Aged Out No longe r eligible based on patient's age to complete this topic Insurance Medicare [facility] Medicare [facility] Care Teams Tax Compliance Officer Relationship Specialty Start Date End Date Alfred Celaya MD [address] [facility] [place] [place] [address] PCP - General Internal Medicine 09/05/21
--- OUTSIDE RECORDS SUMMARY | 2024-11-20 15:48 | XMS_ITS | Clinical Summary ---
Author Organization [facility] Address [address] [place] [address] Care Team Providers Care Artist Suspect Name Role Phone Alfred Celaya MD Primary Care Provider + [phone] Allergies No known active allergies Medications Medication Sig Dispensed Refills Start Date End Date Status simvastatin (ZOCOR) 40 MG tablet Simvastatin 40 MG Oral Tablet TAKE 1 TABLET DAILY. Refills: 0 Started 11-Dec-2012 Active 0 12/11/2012 Active terazosin (HYTRIN) 5 MG capsule Terazosin HCl - 5 MG Oral Capsule TAKE 1 CAPSULE DAILY. Refills: 0 Started -Nov-2012 Active 0 12/11/2012 Active atenolol (TENORMIN) tablet 25 mg Take 0.5 tablets (12.5 mg total) by mouth daily. 1 10/13/2014 Active oxybutynin (DITROPAN) 5 MG tablet Take 1 tablet (5 mg total) by mouth 2 (two) times a day. 2 10/29/2014 Active Multiple Vitamin (MULTI VITAMIN DAILY PO) Take by mouth. 0 Active aspirin EC 81 MG tablet Take 1 tablet (81 mg total) by mouth daily. 0 Active Coenzyme Q10 (COQ10) 100 MG CAPS Take by mouth daily. 0 Act sri levothyroxine (SYNTHROID, LEVOXYL) tablet 50 mcg Take 1 tablet (50 mcg total) by mouth every morning on an empty stomach. 0 Active lisinopril (PRINIVIL,ZESTRIL) tablet 10 mg Take 1 tablet (10 mg total) by mouth daily. 0 Active isosorbide dinitrate (ISORDIL) 30 MG tablet Take 1 tablet (30 mg total) by mouth daily. 0 Active fluorouracil (EFUDEX) 5 % cream Apply topically 2 (two) times a day. 0 Active finasteride (PROSCAR) 5 MG tablet Take 1 tablet (5 mg total) by mouth daily. 0 Active Active Problems Problem Noted Date Diagnosed Date Periorbital ecchymosis of left eye 09/27/2020 Acute cystitis without hematuria 12/17/2019 Anemia in other chronic diseases classified else where 12/17/2019 Thrombocytopenia 09/29/2019 Lung nodule 09/29/2019 Splenomegaly 09/29/2019 Coronary artery disease invo lving [place] coronary artery of [place] heart without angina pectoris 09/29/2019 CLL (chronic lymphocytic leukemia) 10/02/2016 Family History Medical History Relation Name Comments Cancer Daughter Heart disease Father Stroke Father Congenital heart disease Mother Relation Name Status Comments Daughter Father Mother Social History Tobacco Use Types Packs/Day Years Used Date Smoking Tobacco: Never Smokeless Tobacco: Never Alcohol Use Standard Drinks/Week Comments Yes 0 (1 standard drink = 0.6 oz pur e alcohol) Sex and Gender Information Value Date Recorded Sex Assigned at Not on file Gender Identity Not on file Sexual Orientation Not on file Job Start Date Occupation Industry Not on file Not on file Not on file Last Filed Vital Signs Vital Sign Reading Time Taken Comments Blood Pressure 123/48 01/02/2024 9:52 AM EDT Pulse 61 01/02/2024 9:52 AM EDT Temperature 36 C (96.8 F) 01/02/2024 9:52 AM EDT Respiratory Rate - - Oxygen Saturation 98% 01/02/2024 9:52 AM EDT Inhaled Oxygen Concentration - - Weight 70.7 kg (155 lb 12.8 oz) 01/02/2024 9:52 AM EDT Height 172.7 cm (5' 8 ) 01/02/2024 9:52 AM EDT Body Mass Index 23.69 01/02/2024 9:52 AM EDT Plan of Treatment Health Maintenance Due Date Last Done Comments COVID-19 Vaccine (#1) 1945 Depression Screening 1953 Preventative Health Evaluation 1959 DTap / Tdap / Td (1 - Tdap) 1960 Shingrix-Zoster Vaccine (1 o f 2) 1960 Fall Risk Assessment 2006 Pneumococcal Vaccine (2 of 2 - PPSV23 or PCV20) 05/14/2008 03/19/2008 RSV Adult > 60+ Yrs or (1 - 1-dose 75+ series) 2016 Influenza Vaccine (#1) 2024 9, 01/08/2018, 01/04/2017 Hepatitis B Vaccines Aged Out No long er eligible based on patient's age to complete this topic RSV Ped < 20 months Aged Out No longe r eligible based on patient's age to complete this topic Care Teams Artist Suspect Relationship Specialty Start Date End Date Alfred Celaya MD PCP - General Internal Medicine 10/01/17
== END 2024-11-20 15:19 | disposition home or self-care (01) ==
LOC: HO.HKAS 14:31
PROVIDERS: PCP Internal Medicine; Visit Provider Internal Medicine Nephrology
DX: I10 Essential (primary) hypertension (principal); N18.32 Chronic kidney disease, stage 3b
CPT/HCPCS: 99214

== ENCOUNTER → 2024-11-20 14:30 | Outpatient (BNVA) | payer MEDICARE, SELFPAY | PROVIDERS: PCP Internal Medicine; Visit Provider Internal Medicine Nephrology | DX: I12.9 Hypertensive chronic kidney disease with stage 1 through stage 4 chronic kidney disease, or unspecified chronic kidney disease (principal); N18.32 Chronic kidney disease, stage 3b | CPT/HCPCS: 99212 ==